=== PATIENT | female | born 2005 | race Caucasian/White ===

== ENCOUNTER 2024-02-21 23:44 | Emergency (ER) | payer OTHER ==
[~2024-02-21] VITALS: Ht 172.7 cm; Wt 74.8 kg
[2024-02-21] MEDS ORDERED: DULOXETINE HCL60 MG PO (23:58)
[2024-02-22 00:13] LABS: BASOPHILS 0.3 % (0-2); EOSINOPHILS 0.5 % (0-6); HEMATOCRIT 42.5 % (35.0-50.0); HEMOGLOBIN 14.8 g/dL (12.0-18.0); LYMPHOCYTES 23.1 % (24-44); MCHC 34.9 g/dl (30-36); MCV 88.8 fl (81-99); MONOCYTES 10.2 % (0-12); NEUTROPHILS 65.9 % (39-80); PLATELET COUNT 212 K/uL (140-440); RBC 4.79 M/ul (4.3-5.7); RDW 12.5 (10.5-15.0)
[2024-02-22 00:28] LABS: ALBUMIN 4.1 g/dL (3.4-5.0); ANION GAP 15.3 (7-21); BILIRUBIN, TOTAL 0.3 ng/dL (0.2-1.0); BUN/CREATININE RATIO 8.98 (6.0-28.6); CREATININE, SERUM 0.89 mg/dL (0.55-1.02); POTASSIUM 3.3 mmol/L (3.5-5.1); PROTEIN, TOTAL 8.2 g/dL (6.4-8.2)
[2024-02-22 00:53] LABS: BILIRUBIN, URINE NEGATIVE (negative); BLOOD/HGB, URINE NEGATIVE (Negative); KETONE, URINE NEGATIVE (Negative); LEUK ESTERASE, URINE SMALL (negative); NITRITE, URINE NEGATIVE (negative)
[2024-02-22 01:06] LABS: BACTERIA, URINE 2+ /hpf (negative); CASTS, URINE NONE SEEN \\lpf; COLLECTION TYPE, URINE CLEAN CATCH; CRYSTALS, URINE NONE SEEN (0-1+); EPITHELIAL CELLS, URINE SQUAMOUS 2+ /lpf (0-1+); REFLEX CULTURE, URINE No (No)
[2024-02-22 01:24] LABS: AMPHETAMINES, URINE NEGATIVE (NEGATIVE); BARBITURATES, URINE NEGATIVE (NEGATIVE); BENZODIAZEPINE, URINE NEGATIVE (NEGATIVE); BUPRENORPHINE, URINE NEGATIVE (NEGATIVE); CANNABINOID, URINE POSITIVE (NEGATIVE); COCAINE, URINE NEGATIVE (NEGATIVE); ECSTASY, URINE NEGATIVE (NEGATIVE); FENTANYL, URINE NEGATIVE (NEGATIVE); METHADONE, URINE NEGATIVE (NEGATIVE); OPIATES, URINE NEGATIVE (NEGATIVE); OXYCODONE, URINE NEGATIVE (NEGATIVE); PHENCYCLIDINE, URINE NEGATIVE (NEGATIVE)
[2024-02-22 01:44] VITALS: BP 123/81
== END 2024-02-22 01:46 | disposition home or self-care (01) ==
LOC: ED 23:44
PROVIDERS: Family Medicine
DX: N92.0 Excessive and frequent menstruation with regular cycle (principal); R42 Dizziness and giddiness; Z79.899 Other long term (current) drug therapy
CPT/HCPCS: 36415; 80053; 80307; 81001; 83735; 84703; 85025; 99283; G0480

== ENCOUNTER 2024-03-15 03:18 | Emergency (ER) | payer OTHER ==
[~2024-03-15] VITALS: Ht 172.7 cm; Wt 78.5 kg
[~2024-03-15 03:18] MED LIST: DULOXETINE HCL60 MG PO
--- OUTSIDE RECORDS SUMMARY | 2024-03-15 03:20 | XMS ---
PreManage Notification: ANN MARIE BUTTERFIELD Security Integration Developer Events No recent Security Events currently on file CRITERIA MET - [facility] - 2 Visits in 30 Days CARE PROVIDERS KEISHA FERGUSON Nurse Practitioner: 11/04/2017-Current PHONE: [phone] -[facility] Dentist: Batch Tester [facility] PHONE: [phone] -Rosita- Dentist: Batch Tester [facility] PHONE: [phone] [facility] [place]: [facility] ([facility]) PHONE: [phone] Deondre has no Care Guidelines for this patient. Ashlie VISIT COUNT (12 MO.) 2 FRANKIE Valero TOTAL 2 NOTE: Visits indicate total known visits. ED/UCC VISIT TRACKING (12 MO.) 03/15/2024 03:18 [facility] [place] TYPE: Emergency COMPLAINT: - ANXIETY 02/21/2024 23:46 [facility] [place] TYPE: Emergency COMPLAINT: - VAGINAL SPOTTING,LIGHTHEADED DIAGNOSES: - Dizziness and giddiness - Excessive and frequent menstruation with regular cycle - Other buttermilk drier operator (current) drug therapy INPATIENT VISIT TRACKING (12 MO.) No inpatient visits to display in this time frame [email or web address]
[2024-03-15] MEDS ORDERED: LORazepam 1 MG TAB PO ONE (03:45)
[2024-03-15] MEDS ORDERED: LORazepam 1 MG HOME.PACK PO ONE (04:45)
[2024-03-15 05:51] VITALS: BP 126/78
== END 2024-03-15 05:59 | disposition home or self-care (01) ==
LOC: ED 03:18
DX: F41.0 Panic disorder [episodic paroxysmal anxiety] (principal); Z79.899 Other long term (current) drug therapy
CPT/HCPCS: 99283; A9270-GY